=== PATIENT | female | born 1965 | race African-American/Black ===

== ENCOUNTER 2017-05-01 09:06 | Day surgery (SDC) | payer MEDICAID, OTHER ==
[~2017-05-01 09:06] MED LIST: DIPHENHYDRAMINE HCL 50 MG/ML VIAL ONE; EPINEPHRINE INJ 1 MG/10 ML DISP.SYRIN ONE; FLUMAZENIL INJ 0.5 MG/5 ML VIAL ONE; GLUCAGON,HUMAN RECOMB 1 MG INJ ONE; NALOXONE HCL INJ/PF 0.4 MG/1 ML SDV ONE; ONDANSETRON HCL INJ/PF 4 MG/2 ML SDV ONE
[2017-05-01] MEDS: MIDAZOLAM 2 MG/2 ML INJ ONE ×3 (09:45→10:00)
[2017-05-01] MEDS: FENTANYL CITRATE INJ/PF 100 MCG/2 ML AMPUL ONE ×2 (09:47→09:51)
--- NOTE | 2017-05-01 10:49 | Operative Report ---
Operative Report DATE OF SURGERY: 05/01/17 Operative Report: The risks, benefits and alternatives of the procedure including risks of bleeding, perforation requiring surgery are explained to the patient in detail and informed consent is obtained. The patient was taken back to the endoscopy suite and placed in the left, lateral decubital position. Timeout was called. Conscious sedation medications are provided. An Olympus videoscope was inserted into the patient's rectum the rectal examination did not reveal any masses, tears or fissures. The scope was then carefully advanced all the way to the cecum. The cecum was identified by the usual anatomical landmarks including the ileocecal valve as well as the appendiceal office. Photodocumentation is obtained. Prep is good. The scope was then sequentially pulled back via the various segments of the colon including the ascending colon , hepatic flexure, transverse colon, splenic flexure, descending colon and finding to the rectosigmoid portions of the colon. Retroflexion maneuvers performed. PREOPERATIVE DIAGNOSIS: Colorectal cancer screening POSTOPERATIVE DIAGNOSIS: Sessile polyp noted in the cecum. Status post snare polypectomy. 2 endoclips were placed to reduce the risk of post polypectomy bleeding given the fact that the wall of the cecum is fairly thin. A Ventura net was used to retrieve fragments of the polyp. Internal hemorrhoids. Diverticulosis OPERATION: Colonoscopy with snare polypectomy SURGEON: GEOFFREY TUCKER ANESTHESIA: Moderate Sedation - 6 mg of Versed, 100 mcg of fentanyl. Conscious sedation monitoring time 30 minutes. TISSUE REMOVED OR ALTERED: Fragments of the polyp was retrieved. COMPLICATIONS: None. ESTIMATED BLOOD LOSS: None. INTRAOPERATIVE FINDINGS: As described above. PROCEDURE: Patient tolerated the procedure well. No immediate postprocedure complications are noted. Patient discharged in good condition. Discharge date 05/01/2017. Discharge diet: Regular. Discharge activity: Regular. 2-3 week follow-up to discuss findings. Depending on pathology of the polyp perhaps six-month follow-up colonoscopy We will wait on pathology. Patient is instructed to call the office or proceed to the emergency room should there be any further problems or questions.
[2017-05-01 11:28] VITALS: BP 102/68
== END 2017-05-01 11:30 | disposition home or self-care (01) ==
LOC: END 09:06
PROVIDERS: ATTEND Internal Medicine Gastroenterology
PROC: 0DBH8ZX Excision of Cecum, Via Natural or Artificial Opening Endoscopic, Diagnostic (ICD-10-PCS; principal; 2017-05-01 09:30)
DX: Z12.11 Encounter for screening for malignant neoplasm of colon (principal); D12.0 Benign neoplasm of cecum; K57.30 Diverticulosis of large intestine without perforation or abscess without bleeding; K64.8 Other hemorrhoids; F17.210 Nicotine dependence, cigarettes, uncomplicated; Z79.899 Other long term (current) drug therapy; Z79.1 Long term (current) use of non-steroidal anti-inflammatories (NSAID)
CPT/HCPCS: 45385; 88305 ×2; J2250; J3010; J0171; J1200; J1610; J2310; J2405; J3490

== ENCOUNTER 2019-04-19 12:56 | Emergency (ER) | payer OTHER ==
[2019-04-19] MEDS ORDERED: ASPIRIN 81 MG TABLET, CHEWABLE PO ONE (13:25)
[2019-04-19 13:52] LABS: ABSOLUTE BASOPHILS # (AUTO) 0.1 10^3/uL (0.0-0.2); ABSOLUTE EOSINOPHILS # (AUTO) 0.1 10^3/uL (0.0-0.6); ABSOLUTE LYMPHOCYTES (AUTO) 5.4 10^3/uL (0.5-4.7); ABSOLUTE MONOCYTES (AUTO) 0.4 10^3/uL (0.1-1.4); ABSOLUTE NEUT (AUTO) 3.6 10^3/uL (1.7-8.2); BASOPHILS % (AUTO) 0.8 % (0-2); HEMATOCRIT 43.7 % (36.0-47.0); HEMOGLOBIN 14.5 g/dL (12.0-15.5); MEAN CORPUSCULAR HEMOGLOBIN 29.1 pg (27.0-33.4); MEAN CORPUSCULAR HGB CONC 33.2 g/dL (32.0-36.0); MEAN CORPUSCULAR VOLUME 88 fl (80-97); MONOCYTES % (AUTO) 4.7 % (3-13); PLATELET COUNT 255 10^3/uL (150-450); RED BLOOD COUNT 4.98 10^6/uL (3.72-5.28); RED CELL DISTRIBUTION WIDTH 14.4 % (11.5-14.0); SEGMENTED NEUTROPHILS % (AUTO) 37.5 % (42-78); TOTAL CELLS COUNTED % (AUTO) 100 %; WHITE BLOOD COUNT 9.6 10^3/uL (4.0-10.5)
--- NOTE | 2019-04-19 13:53 | ER Document Report ---
ED Medical Screen (RME) - General Chief Complaint: Chest Pain Stated Complaint: CHEST TIGHTNESS Time Seen by Provider: 04/19/19 13:45 Primary Care Provider: YANDEL HENDERSON MD [Primary Care Provider] - Follow up as needed Notes: Patient is a 54-year-old female with a past medical history of hypertension, on lisinopril who presents the emergency department with chest pain. She states that she has on and off chest pain and it started 8 days ago. She describes as a squeezing pain under her sternum. Patient also admits to vomiting for the past 8 days. Patient also states that she feels like she has a bubble under her right side of her ribs. Patient has a family history of heart attack from her uncle and her grandmother. Exam: Tender abdomen in the right upper quadrant. I have greeted and performed a rapid initial assessment of this patient. A comprehensive ED assessment and evaluation of the patient, analysis of test results and completion of medical decision making process will be conducted by an additional ED providers. TRAVEL OUTSIDE OF THE [place] IN LAST 30 DAYS: No - Related Data Allergies/Adverse Reactions: bee venom protein (honey bee) Allergy (Severe, Verified 05/01/17 09:28) Anaphylaxis Past Medical History - Social History Chew tobacco use (# tins/day): No Frequency of alcohol use: Occasional Drug Abuse: None - Past Medical History Cardiac Medical History: Reports: Hx Hypertension Denies: Hx Coronary Artery Disease, Hx Heart Attack Pulmonary Medical History: Denies: Hx Asthma, Hx Bronchitis, Hx COPD, Hx Pneumonia Neurological Medical History: Denies: Hx Cerebrovascular Accident, Hx Seizures Renal/ Medical History: Denies: Hx Peritoneal Dialysis Musculoskeltal Medical History: Denies Hx Arthritis Past Surgical History: Reports: Hx Section. Denies: Hx Hysterectomy - Immunizations Hx Diphtheria, Pertussis, Tetanus Vaccination: Yes Physical Exam - Vital signs Vitals: Temp Pulse Resp BP Pulse Ox 97.3 F 63 18 139/85 H 100 04/19/19 13:07 04/19/19 13:07 04/19/19 13:07 04/19/19 13:07 04/19/19 13:07 Course - Vital Signs Vital signs: Temp Pulse Resp BP Pulse Ox 97.3 F 63 18 139/85 H 98 04/19/19 13:07 04/19/19 13:07 04/19/19 13:07 04/19/19 13:07 04/19/19 13:27 - Laboratory Result Diagrams: 04/19/19 13:15 04/19/19 13:15 Doctor's Discharge - Discharge Referrals: YANDEL HENDERSON MD [Primary Care Provider] - Follow up as needed
--- NOTE | 2019-04-19 14:26 | EKG REPORT ---
SEVERITY:- ABNORMAL ECG - SINUS RHYTHM LAD, CONSIDER LEFT ANTERIOR FASCICULAR BLOCK NONSPECIFIC T ABNORMALITIES, ANTERIOR LEADS , NO OLD EKGS TO COMPARE. : Confirmed by: Bridger Olivas MD 19-Apr-2019 14:25:36
--- NOTE | 2019-04-19 15:04 | RADIOLOGY REPORT (SQ) ---
EXAM DESCRIPTION: CHEST 2 VIEWS COMPLETED DATE/TIME: 04/19/2019 2:48 pm REASON FOR STUDY: Chest Pain COMPARISON: 02/13/2016 TECHNIQUE: Frontal and lateral radiographic views of the chest acquired. NUMBER OF VIEWS: Two view. LIMITATIONS: None. FINDINGS: LUNGS AND PLEURA: No pneumothorax. Small amount of airspace disease -atelectasis in the r ight medial lung base. No pleural effusion. MEDIASTINUM AND HILAR STRUCTURES: Stable. HEART AND VASCULAR STRUCTURES: Stable. BONES: No acute findings. HARDWARE: None in the chest. OTHER: No other significant finding. IMPRESSION: Small amount of airspace disease -atelectasis in the right medial lung base. No pleural effusion. TECHNICAL DOCUMENTATION: JOB ID: [id number] 2010 [employer]- All Rights Reserved Reading location - IP/workstation name: [email or web address]
[2019-04-19 15:07] LABS: ALBUMIN 4.4 g/dL (3.5-5.0); ALKALINE PHOSPHATASE 106 U/L (38-126); ANION GAP 11 (5-19); ASPARTATE AMINO TRANSFERASE 26 U/L (14-36); BILIRUBIN,DIRECT 0.2 mg/dL (0.0-0.4); BILIRUBIN,TOTAL 0.3 mg/dL (0.2-1.3); BLOOD UREA NITROGEN 7 mg/dL (7-20); CARBON DIOXIDE 23 mmol/L (22-30); CHLORIDE 103 mmol/L (98-107); CREATINE KINASE 146 U/L (30-135); GLUCOSE 94 mg/dL (75-110); POTASSIUM 4.3 mmol/L (3.6-5.0); TOTAL PROTEIN 7.8 g/dL (6.3-8.2)
[2019-04-19 15:19] LABS: CREATINE KINASE MB 3.19 ng/mL (<4.55)
[2019-04-19 15:24] LABS: TROPONIN I 0.804 ng/mL
--- NOTE | 2019-04-19 15:30 | RADIOLOGY REPORT (SQ) ---
EXAM DESCRIPTION: U/S ABDOMEN LIMITED W/O DOP COMPLETED DATE/TIME: 04/19/2019 3:19 pm REASON FOR STUDY: chest pain/RUQ pain COMPARISON: None. TECHNIQUE: Dynamic and static grayscale images acquired of the abdomen and recorded on PACS. Additio destinee selected color Doppler and spectral images recorded. LIMITATIONS: None. FINDINGS: PANCREAS: No masses. Visualized pancreatic duct normal caliber. LIVER: No masses. Echotexture normal. LIVER VASCULATURE: Normal directional flow of the main portal vein and hepatic veins. GALLBLADDER: No stones. Normal wall thickness. No pericholecystic fluid. ULTRASOUND-DETECTED YOUSIF'S SIGN: Negative. INTRAHEPATIC DUCTS AND COMMON DUCT: CBD and intrahepatic ducts normal caliber. No filling defects. INFERIOR VENA CAVA: Normal flow. AORTA: No aneurysm. RIGHT KIDNEY: Normal size. Normal echogenicity. No solid or suspicious masses. No hydronephrosis. No calcifications. PERITONEAL AND RIGHT PLEURAL SPACE: No ascites or effusions. OTHER: No other significant findings. IMPRESSION: No ultrasound abnormality of the right upper quadrant to explain pain. Consider CT or M RI to further evaluate unexplained abdominal pain. TECHNICAL DOCUMENTATION: JOB ID: [id number] [employer]- All Rights Reserved Reading location - IP/workstation name: [email or web address]
--- NOTE | 2019-04-19 16:04 | ER Document Report ---
ED Cardiac - General Mode of Arrival: Ambulatory Information source: Patient TRAVEL OUTSIDE OF THE [place] IN LAST 30 DAYS: No <JALYN ASHRAF - Last Filed: 04/19/19 21:33> <YESI PINEDA - Last Filed: 04/19/19 22:44> - General Chief Complaint: Chest Pain Stated Complaint: CHEST TIGHTNESS Time Seen by Provider: 04/19/19 13:45 Primary Care Provider: YANDEL HENDERSON MD [Primary Care Provider] - Follow up as needed Notes: Patient is a 54-year-old female presenting to the emergency department with 8- day history of chest pain, vomiting and bilateral hand tingling. Patient reports when the pain comes on it feels like a tight squeezing pain almost like indigestion. She reports mild shortness of breath with this. She reports she has vomited at least several times daily for 8 days whenever the pain is severe. She also reports pain in the right upper quadrant of her abdomen that she desc ribes as a gas-like pain. She reports past medical history of hypertension, she takes lisinopril for this. She is a smoker, she occasionally drinks alcohol, denies any illicit drug use. Denies any other documented medical history. She has never had a cardiac cath done, never had a stress test done and never had a echocardiogram performed. At the time of my initial evaluation she is chest pain-free. (JALYN ASHRAF) - Related Data Allergies/Adverse Reactions: bee venom protein (honey bee) Allergy (Severe, Verified 05/01/17 09:28) Anaphylaxis Past Medical History - General Information source: Patient - Social History Smoking Status: Current Every Day Smoker Chew tobacco use (# tins/day): No Frequency of alcohol use: Occasional Drug Abuse: None Family History: Reviewed & Not Pertinent Patient has suicidal ideation: No Patient has homicidal ideation: No - Past Medical History Cardiac Medical History: Reports: Hx Hypertension Denies: Hx Coronary Artery Disease, Hx Heart Attack Pulmonary Medical History: Denies: Hx Asthma, Hx Bronchitis, Hx COPD, Hx Pneumonia Neurological Medical History: Denies: Hx Cerebrovascular Accident, Hx Seizures Renal/ Medical History: Denies: Hx Peritoneal Dialysis Musculoskeletal Medical History: Denies Hx Arthritis Past Surgical History: Reports: Hx Section. Denies: Hx Hysterectomy - Immunizations Hx Diphtheria, Pertussis, Tetanus Vaccination: Yes <JALYN ASHRAF - Last Filed: 04/19/19 21:33> Review of Systems - Review of Systems Constitutional: No symptoms reported EENT: No symptoms reported Cardiovascular: Chest pain Respiratory: Short of breath Gastrointestinal: Nausea, Vomiting Genitourinary: No symptoms reported Female Genitourinary: No symptoms reported Musculoskeletal: No symptoms reported Skin: No symptoms reported Hematologic/Lymphatic: No symptoms reported Neurological/Psychological: No symptoms reported <JALYN ASHRAF - Last Filed: 04/19/19 21:33> Physical Exam <JALYN ASHRAF - Last Filed: 04/19/19 21:33> - Vital signs Vitals: Temp Pulse Resp BP Pulse Ox 97.3 F 63 18 139/85 H 100 04/19/19 13:07 04/19/19 13:07 04/19/19 13:07 04/19/19 13:07 04/19/19 13:07 - Notes Notes: PHYSICAL EXAMINATION: GENERAL: Well-appearing, well-nourished and in no acute distress. HEAD: Atraumatic, normocephalic. EYES: Pupils equal round and reactive to light, extraocular movements intact, conjunctiva are normal. ENT: Nares patent, oropharynx clear without exudates. Moist mucous membranes. NECK: Normal range of motion, supple without lymphadenopathy LUNGS: Breath sounds clear to auscultation bilaterally and equal. No wheezes rales or rhonchi. HEART: Regular rate and rhythm without murmurs ABDOMEN: Soft, nontender, nondistended abdomen. No guarding, no rebound. No m asses appreciated. Female : deferred Musculoskeletal: Normal range of motion, no pitting or edema. No cyanosis. NEUROLOGICAL: Cranial nerves grossly intact. Normal speech, normal gait. Normal sensory, motor exams PSYCH: Normal mood, normal affect. SKIN: Warm, Dry, normal turgor, no rashes or lesions noted. (JALYN ASHRAF) Course - Laboratory Result Diagrams: 04/19/19 13:15 04/19/19 14:30 <JALYN ASHRAF - Last Filed: 04/19/19 21:33> - Laboratory Result Diagrams: 04/19/19 13:15 04/19/19 14:30 <YESI PINEDA - Last Filed: 04/19/19 22:44> - Re-evaluation Re-evalutation: Labs as recorded below. Patient having a non-STEMI, troponin has increased at the 3-hour draw. Patient has remained chest pain-free during her stay in the emergency department. I did reach out to her menu planner, Dr. Smart to see if patient would be appropriate for admission here. Unfortunately we do not have a Elastic Attacher Coverstitch available until Saturday. Patient will be transferred out to a tertiary facility. Call was placed to [facility]. I waited 45 minutes and received a phone call back stating that there hospitalist was busy and would not be able to return a phone call until the morning. I then called [facility] who graciously accepted the patient for transfer. They did request that I medicate the patient with Lovenox, orders placed. Bedside handoff was given to oncvonnie membreno, ELFEGO Pineda. Patient declines any needs at this time, she repayment remains chest pain-free. Her vital signs have been within normal limits. Currently awaiting transport. (JALYN ASHRAF) 04/19/19 22:44 Transport is currently at bedside. Temperature noted to be 98.4, heart rate 59, respiratory rate 23, pulse oxygenation on room air 100%, blood pressure 151/91. Patient continues to be chest pain-free. Stable for transport. (YESI PINEDA) - Vital Signs Vital signs: Temp Pulse Resp BP Pulse Ox 97.3 F 63 20 151/91 H 100 04/19/19 13:07 04/19/19 13:07 04/19/19 22:36 04/19/19 22:36 04/19/19 22:36 - Laboratory Laboratory results interpreted by me: 04/19/19 04/19/19 13:15 14:30 RDW 14.4 H Seg Neutrophils % 37.5 L Lymphocytes % 56.0 H Absolute Lymphocytes 5.4 H Creatine Kinase 146 H Discharge <JALYN ASHRAF - Last Filed: 04/19/19 21:33> <YESI PINEDA - Last Filed: 04/19/19 22:44> - Discharge Clinical Impression: NSTEMI (non-ST elevated myocardial infarction) Condition: Stable Disposition: [facility] Referrals: YANDEL HENDERSON MD [Primary Care Provider] - Follow up as needed
[2019-04-19] MEDS ORDERED: ENOXAPARIN SODIUM INJ 80 MG/0.8 ML DISP.SYRIN SUBCUT SCH (22:00)
[2019-04-19 22:38] VITALS: BP 151/91
== END 2019-04-19 22:34 | disposition short-term general hospital (02) ==
LOC: ER 12:56
DX: I21.4 Non-ST elevation (NSTEMI) myocardial infarction (principal); I10 Essential (primary) hypertension; R06.02 Shortness of breath; R10.11 Right upper quadrant pain; R11.2 Nausea with vomiting, unspecified; F17.200 Nicotine dependence, unspecified, uncomplicated; Z79.899 Other long term (current) drug therapy; Z91.030 Bee allergy status; Z87.892 Personal history of anaphylaxis
CPT/HCPCS: 93005; 36415; 82553; 82550; 85025; 80053; 84484; 71046; 76705; 93010; J1650; 96372; 99285

== ENCOUNTER 2019-11-28 10:48 | Emergency (ER) | payer OTHER ==
--- NOTE | 2019-11-28 11:00 | ER Document Report ---
ED Medical Screen (RME) - General Chief Complaint: Chest Pain Stated Complaint: CHEST PAIN Time Seen by Provider: 11/28/19 10:56 Primary Care Provider: YANDEL HENDERSON MD [Primary Care Provider] - Follow up as needed Cannot obtain history due to: Other - This 54-year-old female presented to the emergency room today with left-sided chest pain initiated last night. She does have a history of an RI last year and does smoke. She does seem to get relief when she lifts the left breast. TRAVEL OUTSIDE OF THE [place] IN LAST 30 DAYS: No - Related Data Allergies/Adverse Reactions: bee venom protein (honey bee) Allergy (Severe, Verified 05/06/19 13:14) Anaphylaxis Past Medical History - Past Medical History Cardiac Medical History: Reports: Hx Heart Attack - NSTEMI, Hx Hypertension Denies: Hx Coronary Artery Disease Pulmonary Medical History: Denies: Hx Asthma, Hx Bronchitis, Hx COPD, Hx Pneumonia Neurological Medical History: Denies: Hx Cerebrovascular Accident, Hx Seizures Renal/ Medical History: Denies: Hx Peritoneal Dialysis Musculoskeltal Medical History: Denies Hx Arthritis Past Surgical History: Reports: Hx Cardiac Catheterization, Hx Section. Denies: Hx Hysterectomy - Immunizations Hx Diphtheria, Pertussis, Tetanus Vaccination: Yes Physical Exam - Cardiovascular Rhythm: Regular Heart sounds: Normal auscultation Murmur: No Doctor's Discharge - Discharge Referrals: YANDEL HENDERSON MD [Primary Care Provider] - Follow up as needed
[2019-11-28] MEDS ORDERED: ASPIRIN 325 MG TABLET PO ONE (11:23)
--- NOTE | 2019-11-28 11:27 | ER Document Report ---
ED Cardiac - General Chief Complaint: Chest Pain Stated Complaint: CHEST PAIN Time Seen by Provider: 11/28/19 10:56 Primary Care Provider: YANDEL HENDERSON MD [Primary Care Provider] - Follow up as needed Notes: HPI: Patient is a 54-year-old female who presents today with the onset yesterday of some chest discomfort to the left chest. She states it is intermittent without radiation. Nausea without vomiting, cough, shortness of breath, or diaphoresis. Patient has had no calf pain, leg swelling, recent trips or travel. Patient states it is intermittent. She states it feels a little better when she lays flat or "when I lift my left breast". Patient states she has a history of a "heart attack" 1 year ago. She was seen here and transferred to [facility]. She states they did not place a stent and only medically managed her after her catheterization. ROS: See HPI All other review of systems reviewed and otherwise negative Reviewed vital signs and nursing note as charted by RN. PHYSICAL EXAM: CONSTITUTIONAL: Alert and oriented and responds appropriately to questions. Well-appearing; well-nourished HEAD: Normocephalic; atraumatic CARD: Regular rate and rhythm; no murmurs; symmetric distal pulses RESP: Normal chest excursion without splinting or tachypnea; breath sounds clear and equal bilaterally; no breast swelling, erythema, or palpable lymphadenopathy; no wheezes, no rhonchi, no rales ABD/GI: Normal bowel sounds; non-distended; soft, non-tender; no palpable organomegaly or masses BACK: The back appears normal and is non-tender to palpation EXT: Normal ROM in all joints; non-tender to palpation; no edema SKIN: No acute lesions noted NEURO: CN 2-12 intact; 5/5 bilateral upper and lower extremity strength with sensation intact to light touch PSYCH: The patient's mood and manner are appropriate. Grooming and personal hygiene are appropriate. TRAVEL OUTSIDE OF THE [place] IN LAST 30 DAYS: No - Related Data Allergies/Adverse Reactions: bee venom protein (honey bee) Allergy (Severe, Verified 05/06/19 13:14) Anaphylaxis Past Medical History - Social History Smoking Status: Current Every Day Smoker Family History: Reviewed & Not Pertinent Patient has suicidal ideation: No Patient has homicidal ideation: No - Past Medical History Cardiac Medical History: Reports: Hx Heart Attack - NSTEMI, Hx Hypertension Denies: Hx Coronary Artery Disease Pulmonary Medical History: Denies: Hx Asthma, Hx Bronchitis, Hx COPD, Hx Pneumonia Neurological Medical History: Denies: Hx Cerebrovascular Accident, Hx Seizures Renal/ Medical History: Denies: Hx Peritoneal Dialysis Musculoskeletal Medical History: Denies Hx Arthritis Past Surgical History: Reports: Hx Cardiac Catheterization, Hx Section. Denies: Hx Hysterectomy - Immunizations Hx Diphtheria, Pertussis, Tetanus Vaccination: Yes Physical Exam - Vital signs Vitals: Temp Pulse Resp BP Pulse Ox 97.5 F 60 18 122/83 98 11/28/19 10:57 11/28/19 10:57 11/28/19 10:57 11/28/19 10:57 11/28/19 10:57 Course - Re-evaluation Re-evalutation: 11/28/19 11:26 Given the above history and physical examination, currently pain-free, with vit al signs as recorded, I do believe pulmonary embolism and dissection to be extremely unlikely. We will obtain a cardiac panel and provide aspirin and place the patient on the monitor. EKG shows a heart of 61, normal sinus rhythm, minimal left axis deviation, slightly inverted T waves in leads V3 and V4 with flattening T waves laterally. Compared to the previous EKG performed in April 2019 I detect no obvious appreciable change. 11/28/19 12:36 No active chest pain at this time. Initial labs and imaging as recorded. Normal initial troponin. Patient has no tenderness to palpation of the right upper quadrant. 11/28/19 14:53 Patient still has had no chest pain here in the emergency department. Repeat troponin as recorded. Heart score is a 3. I reviewed the previous catheterization report showing a very small vessel not stent double secondary to size. Patient has an appointment on Saturday this week with [facility] rattling machine tender Dr. Mcgill. I explained to the patient the results of her studies as well as the low pretest probability for having a major cardiac event in the next 30 days. I have explained that I am happy to admit the patient for further investigation at this time but have explained the 1 to 2% likelihood of serious events. Given the current state of health care with the current outbreak of COVID19, the patient has weighed the risks and benefits and would like to go home. She does understand strict return precautions we have explained. I do believe given the above information that this is a reasonable option. Patient will be discharged home with strict return precautions and follow-up with a rattling machine tender. - Vital Signs Vital signs: Temp Pulse Resp BP Pulse Ox 97.8 F 60 19 123/65 100 11/28/19 11:20 11/28/19 10:57 11/28/19 12:01 11/28/19 12:01 11/28/19 12:01 - Laboratory Result Diagrams: 11/28/19 11:17 11/28/19 11:17 Laboratory results interpreted by me: 11/28/19 11/28/19 11:17 11:17 RDW 14.9 H Seg Neuts % (Manual) 20 L Lymphocytes % (Manual) 73 H Monocytes % (Manual) 2 L Abs Lymphs (Manual) 6.7 H AST 47 H ALT 63 H Discharge - Discharge Clinical Impression: Chest pain Qualifiers: Chest pain type: unspecified Qualified Code(s): R07.9 - Chest pain, unspecified Condition: Good Disposition: HOME, SELF-CARE Additional Instructions: Come back immediately for any return of pain, change in location or quality of pain, shortness of breath, leg swelling, vomiting, sweating, or any other acute problems. Please make sure that you take aspirin daily as discussed and follow- up with the rattling machine tender as scheduled. Referrals: YANDEL HENDERSON MD [Primary Care Provider] - Follow up as needed
--- NOTE | 2019-11-28 11:32 | RADIOLOGY REPORT (SQ) ---
EXAM DESCRIPTION: CHEST SINGLE VIEW COMPLETED DATE/TIME: 11/28/2019 11:11 am REASON FOR STUDY: pain sp fall COMPARISON: None. NUMBER OF VIEWS: One view. TECHNIQUE: Single frontal radiographic view of the chest acquired. LIMITATIONS: None. FINDINGS: LUNGS AND PLEURA: No opacities, masses or pneumothorax. No pleural effusion. MEDIASTINUM AND HILAR STRUCTURES: No masses. Contour normal. HEART AND VASCULAR STRUCTURES: Heart normal in size. Normal vasculature. BONES: No acute findings. HARDWARE: None in the chest. OTHER: No other significant finding. IMPRESSION: NO SIGNIFICANT RADIOGRAPHIC FINDING IN THE CHEST. TECHNICAL DOCUMENTATION: JOB ID: [id number] 2010 [employer]- All Rights Reserved Reading location - IP/workstation name: [email or web address]
[2019-11-28 11:46] LABS: ALBUMIN 4.4 g/dL (3.5-5.0); ALKALINE PHOSPHATASE 109 U/L (38-126); ANION GAP 9 (5-19); ASPARTATE AMINO TRANSFERASE 47 U/L (14-36); BILIRUBIN,TOTAL 0.4 mg/dL (0.2-1.3); BLOOD UREA NITROGEN 8 mg/dL (7-20); CALCIUM 9.9 mg/dL (8.4-10.2); CARBON DIOXIDE 25 mmol/L (22-30); CHLORIDE 106 mmol/L (98-107); GLUCOSE 97 mg/dL (75-110); POTASSIUM 4.3 mmol/L (3.6-5.0); TOTAL PROTEIN 7.9 g/dL (6.3-8.2)
[2019-11-28 12:11] LABS: HEMATOCRIT 40.5 % (36.0-47.0); HEMOGLOBIN 13.7 g/dL (12.0-15.5); MEAN CORPUSCULAR HEMOGLOBIN 29.9 pg (27.0-33.4); MEAN CORPUSCULAR HGB CONC 33.8 g/dL (32.0-36.0); MEAN CORPUSCULAR VOLUME 89 fl (80-97); PLATELET COUNT 199 10^3/uL (150-450); RED BLOOD COUNT 4.58 10^6/uL (3.72-5.28); RED CELL DISTRIBUTION WIDTH 14.9 % (11.5-14.0); WHITE BLOOD COUNT 8.8 10^3/uL (4.0-10.5)
[2019-11-28 12:28] LABS: ABSOLUTE LYMPHOCYTES# (MANUAL) 6.7 10^3/uL (0.5-4.7); ABSOLUTE MONOCYTES # (MANUAL) 0.2 10^3/uL (0.1-1.4); BASOPHILS % (MANUAL) 2 % (0-2); EOSINOPHILS % (MANUAL) 0 % (0-6); MONOCYTES % (MANUAL) 2 % (3-13); SEGMENTED NEUTROPHILS % (MAN) 20 % (42-78); TOTAL CELLS COUNTED 100
[2019-11-28 12:30] LABS: ANISOCYTOSIS SLIGHT; PLATELET CLUMPS PRESENT; PLATELET COMMENT ADEQUATE; PLATELET LARGE PRESENT
[2019-11-28 12:32] LABS: LYMPHOCYTES % (MANUAL) 73 % (13-45)
--- NOTE | 2019-11-28 13:54 | EKG REPORT ---
SEVERITY:- ABNORMAL ECG - SINUS RHYTHM LAD, CONSIDER LEFT ANTERIOR FASCICULAR BLOCK NONSPECIFIC T ABNORMALITIES, DIFFUSE LEADS : Confirmed by: Nancy Smart MD 28-Nov-2019 13:54:02
[2019-11-28 14:59] VITALS: BP 150/84
[2019-11-30 12:56] LABS: PATH REVIEW PATHOLOGIST REVIEWED
== END 2019-11-28 15:08 | disposition home or self-care (01) ==
LOC: ER 10:48
DX: R07.9 Chest pain, unspecified (principal); R11.0 Nausea; I10 Essential (primary) hypertension; F17.200 Nicotine dependence, unspecified, uncomplicated; I25.2 Old myocardial infarction; Z87.892 Personal history of anaphylaxis; Z91.030 Bee allergy status
CPT/HCPCS: 36415; 71045; 80053; 84484; 85025; 93005; 93010; 99285